=== PATIENT | male | born 1945 | race Caucasian/White ===

== ENCOUNTER 2025-05-30 20:44 | Emergency (ER) | payer BC ==
[~2025-05-30] VITALS: Ht 182.9 cm; Wt 78.9 kg
--- NOTE | 2025-05-30 20:53 | ELECTROCARDIOGRAPH REPORT ---
[facility] Test Date: 2025-05-30 Test Time: 20:51:00 Pat Name: SLOANE VAZQUEZ Department: EMERGENCY ROOM Room: Gender: M Administrative Services Officer: OLIVIA : 1945 Requested By: MAKSIM HODGSON Order Number: [id number] Reading MD: Measurements Intervals [place] Rate: 83 P: 65 MD: 151 QRS: -79 QRSD: 148 T: 17 QT: 409 QTc: 481 Interpretive Statements Sinus rhythm Right bundle branch block Probable anterior infarct, old Please click the below link to view image of tracing.
[2025-05-30 21:24] LABS: CREATININE 1.08 MG/DL (0.60-1.10); PRO BRAIN NATRIURETIC PEPTIDE 86 PG/ML (0-450); TOTAL CARBON DIOXIDE 26.3 MMOL/L (24-32); eCRCL 62 ML/MIN; eGFR 66 ML/MIN
[2025-05-30 21:44] LABS: LEUKOCYTE ESTERASE ,URINE NEGATIVE (Neg); NITRITES, URINE NEGATIVE (Neg); OCCULT BLOOD,URINE NEGATIVE (Neg)
[2025-05-30 21:48] LABS: UA COLLECTION TYPE CLN CATCH MIDSTREAM
--- NOTE | 2025-05-30 21:50 | RADIOLOGY REPORT ---
CLINICAL HISTORY: CP TECHNIQUE: Single view of the chest was obtained. COMPARISON: None FINDINGS: The heart size and pulmonary vasculature are normal. The lungs are clear. IMPRESSION: NO ACUTE CARDIOPULMONARY PROCESS.
[2025-05-30 22:45] LABS: MEAN PLATELET VOLUME 8.7 FL (7.4-10.4); RED CELL DISTRIBUTION WIDTH 14.0 % (11.5-14.5)
--- NOTE | 2025-05-30 23:58 | Physician Documentation ---
History of Present Illness ~ Chief Complaint: Palpitations Stated Complaint: RAPID HR Time Seen by MD: 21:00 HPI 80 year old male reports that he has experienced episodes of racing heart and shortness of breath over the past week. Denies LOC, chest pain, fevers, N/V/D. He also reports that his blood pressure has been intermittently elevated at home, and times being higher than 170's-200. He does not take antihypertensives. Review of Systems All Other Systems at this time: Reviewed and Negative Physical Exam Vital Signs: RN Vital Signs have been reviewed: Yes, Temperature: 98.2, Source: Temporal, Heart Rate: 84, Respiratory Rate: 16, BP: 185/90, Pulse Oximetry: 98, Weight: 78.900 Oxygen Flow Rate: 0 Physical Exam HEENT: PERRL, moist oral mucosa, EOMI Pulmonary: No respiratory distress CTAB Cardiac: RRR, no murmur, rub or gallop MSK: no deformity Skin: w/d/i, no rash Neuro: alert, nonfocal Psych: normal affect Progress Results/Orders Results/Orders Orders - MAKSIM HODGSON MD Chest,Single View (05/30/25 20:59) Monitor (05/30/25 20:47) Saline Lock (05/30/25 20:47) Oxygen (05/30/25 20:47) Hs Troponin I W Calculations (05/30/25 23:47) Completed Orders - MAKSIM HODGSON MD Chest,Single View (05/30/25 20:59) BMP (05/30/25 20:47) PBNP (05/30/25 20:47) Electrocardiogram (05/30/25 20:47) Hs Troponin I W Calculations (05/30/25 20:47) Hs Troponin I W Calculations (05/30/25 22:47) Urinalysis (05/30/25 20:51) Vital Signs 05/30/25 20:54 Temp 98.2 Pulse 84 Resp 16 B/P (MAP) 185/90 Pulse Ox 98 O2 Flow Rate 0 Laboratory Tests Test 05/30/25 20:50 05/30/25 20:56 05/30/25 22:38 Urine Specimen Description Cln catch midstream Urine Color Straw Urine Clarity Clear Urine pH 7.0 Urine Specific [place] <=1.005 Urine Protein Negative Urine Glucose (UA) Negative Urine Ketones Negative Urine Occult Blood Negative Urine Nitrite Negative Urine Bilirubin Negative Urine Urobilinogen 0.2 Urine Leukocyte Esterase Negative Volume Urine Centrifuged 10 ml Urine Comment CBC Comment Sodium Level 136 Potassium Level 3.9 Chloride Level 100 Carbon Dioxide Level 26.3 Anion Gap 10 Blood Urea Nitrogen 20 H Creatinine 1.08 Estimated GFR/1.73 m2 66 BUN/Creatinine Ratio 18.5 Glucose Level 193 H Calcium Level 8.7 Troponin I High Sensitivity 9 9 Pro-B-Type Natriuretic Peptide 86 Albumin 4.1 Chemistry Comments White Blood Count 7.9 Red Blood Count 4.62 L Hemoglobin 13.9 L Hematocrit 40.7 L Mean Corpuscular Volume 88.1 Mean Corpuscular Hemoglobin 30.0 Mean Corpuscular Hemoglobin Concent 34.1 Red Cell Distribution Width 14.0 Platelet Count 171 Mean Platelet Volume 8.7 Neutrophils (%) (Auto) 69.4 Lymphocytes (%) (Auto) 23.7 Monocytes (%) (Auto) 5.4 Eosinophils (%) (Auto) 1.0 Basophils (%) (Auto) 0.5 Neutrophils # (Auto) 5.5 Lymphocytes # (Auto) 1.9 Monocytes # (Auto) 0.4 Eosinophils # (Auto) 0.1 Basophils # (Auto) 0.0 Troponin I High Sens Percent Delta 0 Troponin I Hi Sens Absolute Change 0 Medical Decision Making Additional information obtaine: N/A Findings 80 year old male as above with benign exam and vital signs. EKG by my interpretation demonstrated NSR @ 83/min, no STEMI criteria with RBBB morphology. CXR interpreted by me demonstrated normal contours, no PTX, no PNA. Labs were unremarkable. Observed on telemonitor for several hours and no dysrhythmia or electrocardiographic etiology of his palpitations was observed. [place] safe discharging patient to follow up with a PCP and recommended he start antihypertensive therapy if they felt it was necessary. Differential Dx:Considerations: Include: other Differential Dx:Considerations: Include other Additional Information Ddx = COPD, CHF, dysrhythmia, atrial fibrillation/flutter, PVCs, PACs, PNA, PTX, Pulmonary embolus, anxiety Departure Disposition: HOME / SELF CARE / HOMELESS Impression: Primary Impression: RBBB Additional Impression: Hypertension Condition: Stable Discharge Instructions: Palpitations, [id number] Referrals: NO PRIMARY CARE PROVIDER (PCP) Education Educated: Patient Educated regarding: diagnosis, treatment, prognosis, need for follow up Signature Scribe Signature: . Attestation: . MAKSIM HODGSON MD May 30, 2025 23:58
[2025-05-31 00:27] VITALS: BP 141/74; PULSE 70; RESP 17; TEMP 98.2; O2SAT 99
== END 2025-05-31 00:29 | disposition home or self-care (01) ==
LOC: ER 20:45
DX: I45.10 Unspecified right bundle-branch block (principal); I10 Essential (primary) hypertension
CPT/HCPCS: 36415; 71045; 80048; 81003; 83880; 84484; 85025; 93005; 99285